=== PATIENT | male | born 1950 | race Caucasian/White ===

== ENCOUNTER 2020-05-02 13:53 | Inpatient (IN) ==
[2020-05-02] MEDS ORDERED: *HR* Heparin 5,000 UNIT/ML VIAL IVP PRN ×2 (14:22)
[2020-05-02] MEDS ORDERED: *HR* Heparin 5,000 UNIT/ML VIAL IVP ONE (14:22)
[2020-05-02] MEDS: Heparin 25,000 UNIT/250 ML D5W 25,000 UNIT/250 ML IV.SOLN IVC SCH (14:40)
[2020-05-02] MEDS ORDERED: Naloxone 0.4 MG/ML INJ IVP PRN (15:08)
[2020-05-02 15:10] LABS: Heparin anti-factor XA UFH < 0.04 IU/mL (0.30-0.70); INR 1.1; Prothrombin Time 12.6 Seconds (9.4-12.1)
[2020-05-02 15:47] LABS: Troponin I 9.36 ng/mL (< 0.04)
[2020-05-02 15:48] LABS: Hematocrit 44.1 % (37.5-50.1); Hemoglobin 14.5 g/dL (12.9-16.9); Mean Corpuscular HGB Conc 32.9 g/dL (31.6-35.5); Mean Corpuscular Hemoglobin 30.1 pg (28.0-33.3); Mean Corpuscular Volume 91.5 fL (83.0-100.0); Mean Platelet Volume 12.4 fL (9.4-12.4); Platelet Count 148 K/mcL (140-400); Red Blood Count 4.82 M/mcL (4.19-5.50); Red Cell Distribution Width 12.7 % (11.5-14.5); White Blood Count 8.7 K/mcL (4.3-11.1)
[2020-05-02 16:04] LABS: BUN/Creatinine Ratio 16 (6-26); Blood Urea Nitrogen 17 mg/dL (8-23); Calcium 9.6 mg/dL (8.6-10.3); Carbon Dioxide 28 mEq/L (23-29); Chloride 104 mEq/L (98-107); Glucose 97 mg/dL (70-105); Osmolality,Calculated 289 (280-300); Potassium 3.9 mEq/L (3.5-5.1); Sodium 139 mEq/L (136-145); eGFR For African Americans > 60 (> 60); eGFR For Non-African Americans > 60 (> 60)
[2020-05-02] MEDS ORDERED: 0.9 % Sodium Chloride 1,000 ML IVC SCH (17:00)
[2020-05-02] MEDS ORDERED: Perflutren Lipid Microsphere 1.3 ML in 0.9 % Sodium Chloride 8.7 ML IVP ONE (17:23)
[2020-05-02] MEDS: Insulin LISPRO 300 UNITS/3 ML VIAL SQ SCH ×2 (17:42→21:23)
[2020-05-03 05:47] LABS: BUN/Creatinine Ratio 16 (6-26); Blood Urea Nitrogen 17 mg/dL (8-23); Calcium 9.3 mg/dL (8.6-10.3); Carbon Dioxide 28 mEq/L (23-29); Chloride 104 mEq/L (98-107); Chol/HDL Ratio 2.4 (0-4.9); Cholesterol 83 mg/dL (< 200); Glucose 116 mg/dL (70-105); HDL Cholesterol 35 mg/dL (40-59); LDL Cholesterol,Calculated 25 mg/dL (0-99); Osmolality,Calculated 289 (280-300); Sodium 138 mEq/L (136-145); Triglycerides 114 mg/dL (< 150); eGFR For African Americans > 60 (> 60); eGFR For Non-African Americans > 60 (> 60)
[2020-05-03] MEDS: Insulin LISPRO 300 UNITS/3 ML VIAL SQ SCH ×4 (07:32→21:00)
[2020-05-03] MEDS: Aspirin 81 MG TAB.CHEW PO SCH (07:56)
[2020-05-03] MEDS: Nitroglycerin 0.4 MG TAB.SUBL SL PRN ×2 (08:35→08:40)
[2020-05-03] MEDS ORDERED: 0.9 % Sodium Chloride 500 ML ONE (08:45)
[2020-05-03] MEDS ORDERED: 0.9 % Sodium Chloride 1,000 ML IVC SCH (09:45)
[2020-05-03 10:09] LABS: Estimated Average Glucose 148 mg/dl
[2020-05-03] MEDS ORDERED: ISOVUE-370 200 ML INFUS..BTL ONE (11:48)
[2020-05-03] MEDS ORDERED: Heparin 1,000 UNITS/500 mL 500 ML ONE (11:48)
[2020-05-03] MEDS ORDERED: *HR* Heparin 10,000 UNIT/10 ML VIAL ONE (11:48)
[2020-05-03] MEDS ORDERED: 0.9 % Sodium Chloride 1,000 ML ONE ×2 (11:49→11:58)
[2020-05-03] MEDS ORDERED: Nitroglycerin 1,000 MCG/10 ML VIAL IV ONE (11:49)
[2020-05-03] MEDS ORDERED: *HR* Midazolam HCl 2 MG/2 ML VIAL ONE (13:07)
[2020-05-03] MEDS ORDERED: Acetaminophen 325 MG TABLET PO PRN (14:04)
[2020-05-03] MEDS: Heparin 25,000 UNIT/250 ML D5W 25,000 UNIT/250 ML IV.SOLN IVC SCH (15:52)
[2020-05-03] MEDS: Chlorhexidine Rinse 15 ML MOUTHWASH MM SCH (18:05)
[2020-05-03] MEDS ORDERED: *HR* Heparin 5,000 UNIT/ML VIAL IVP PRN (21:49)
[2020-05-04] MEDS ORDERED: Insulin Human Regular 100 UNIT in 0.9 % Sodium Chloride 100 ML IV PRN (02:00)
[2020-05-04] MEDS ORDERED: Heparin 15,000 UNIT in 0.9 % Sodium Chloride 500 ML IV ONE (02:00)
[2020-05-04] MEDS ORDERED: Dextrose 50 % in Water (Vial) 30 ML, Sodium Bicarbonate 20 MEQ, Lidocaine 1% 5 ML, Insu... TH ONE ×3 (02:00)
[2020-05-04] MEDS ORDERED: Norepinephrine 4 MG in 0.9 % Sodium Chloride 250 ML IVC PRN (02:00)
[2020-05-04] MEDS ORDERED: Dextrose 50 % in Water (Vial) 30 ML, Sodium Bicarbonate 20 MEQ, Potassium Chloride 15 M... TH ONE (02:00)
[2020-05-04 04:08] LABS: Basophils % 0.6 %; Eosinophils # 0.4 K/mcL (0.0-0.6); Eosinophils % 5.3 %; Hematocrit 39.8 % (37.5-50.1); Hemoglobin 13.9 g/dL (12.9-16.9); Immature Granulocytes % 0.2 % (0-4); Immature Platelets 7.3 % (1.1-6.1); Lymphocytes # 1.3 K/mcL (0.6-4.6); Lymphocytes % 19.5 %; Mean Corpuscular HGB Conc 34.9 g/dL (31.6-35.5); Mean Corpuscular Hemoglobin 31.5 pg (28.0-33.3); Mean Corpuscular Volume 90.2 fL (83.0-100.0); Mean Platelet Volume 11.6 fL (9.4-12.4); Monocytes # 0.8 K/mcL (0.0-1.3); Monocytes % 12.7 %; Neutrophils # 4.1 K/mcL (1.6-8.9); Platelet Count 111 K/mcL (140-400); Red Blood Count 4.41 M/mcL (4.19-5.50); Red Cell Distribution Width 12.8 % (11.5-14.5); Segmented Neutrophils % 61.7 %; White Blood Count 6.6 K/mcL (4.3-11.1)
[2020-05-04 04:18] LABS: BUN/Creatinine Ratio 20 (6-26); Blood Urea Nitrogen 15 mg/dL (8-23); Calcium 8.9 mg/dL (8.6-10.3); Carbon Dioxide 24 mEq/L (23-29); Chloride 105 mEq/L (98-107); Glucose 108 mg/dL (70-105); Osmolality,Calculated 283 (280-300); Potassium 3.8 mEq/L (3.5-5.1); Sodium 136 mEq/L (136-145); eGFR For African Americans > 60 (> 60); eGFR For Non-African Americans > 60 (> 60)
[2020-05-04] MEDS: Chlorhexidine Rinse 15 ML MOUTHWASH MM SCH ×2 (05:30→20:02)
[2020-05-04] MEDS: Aspirin 81 MG TAB.CHEW PO SCH (06:22)
[2020-05-04] MEDS ORDERED: *HR* FentaNYL (PF) 1,000 MCG/20 ML VIAL ONE (06:50)
[2020-05-04] MEDS ORDERED: *HR* Propofol 200 MG/20 ML VIAL IVP ONE (06:50)
[2020-05-04] MEDS ORDERED: *HR* Midazolam HCl 5 MG/5 ML VIAL IVP ONE (06:50)
[2020-05-04] MEDS ORDERED: *HR* Rocuronium Bromide 50 MG/5 ML VIAL ONE ×3 (06:55→11:13)
[2020-05-04] MEDS ORDERED: *HR* PHENYLEPHRINE 1,000 MCG/10 ML SYRINGE IVP ONE (06:55)
[2020-05-04] MEDS ORDERED: Dexamethasone 4 MG/ML VIAL ONE (06:55)
[2020-05-04] MEDS ORDERED: Lidocaine 2% Syringe 100 MG/5 ML ONE (06:56)
[2020-05-04] MEDS ORDERED: *HR* Magnesium Sulfate 1 GM/2 ML VIAL ONE (06:56)
[2020-05-04] MEDS ORDERED: Tranexamic Acid 1,000 MG/10 ML VIAL ONE (06:56)
[2020-05-04] MEDS ORDERED: Famotidine 20 MG/2 ML VIAL ONE (06:56)
[2020-05-04] MEDS ORDERED: CeFAZolin 2 GM/120 ML BAG IVPB ONE (07:00)
[2020-05-04 08:08] LABS: ABG Base Excess -1 mEq/L (-2 to 3); ABG Chloride 107 mEq/L (98-107); ABG Glucose 102 mg/dL (60-95); ABG HCO3 26 mEq/L (21-27); ABG Ionized Calcium 1.03 mmol/L (1.15-1.35); ABG Oxygen Saturation 100 % (95-98); ABG PCO2 48 mmHg (35-45); ABG PH 7.34 pH Units (7.32-7.45); ABG PO2 363 mmHg (85-104); ABG TCO2 27 mEq/L (20-26)
[2020-05-04] MEDS ORDERED: Albumin Human 5% 50.0 GM/1,000 ML IV.SOLN ONE (08:48)
[2020-05-04 09:46] LABS: ABG Base Excess -1 mEq/L (-2 to 3); ABG Chloride 105 mEq/L (98-107); ABG Glucose 103 mg/dL (60-95); ABG HCO3 25 mEq/L (21-27); ABG Ionized Calcium 1.19 mmol/L (1.15-1.35); ABG Oxygen Saturation 100 % (95-98); ABG PCO2 51 mmHg (35-45); ABG PH 7.31 pH Units (7.32-7.45); ABG PO2 322 mmHg (85-104); ABG TCO2 27 mEq/L (20-26)
[2020-05-04] MEDS ORDERED: Calcium Gluconate 1,000 MG/10 ML VIAL ONE (09:56)
[2020-05-04] MEDS ORDERED: Protamine Sulfate 250 MG/25 ML VIAL IVP ONE (09:56)
[2020-05-04 10:22] LABS: ABG Base Excess -1 mEq/L (-2 to 3); ABG Chloride 100 mEq/L (98-107); ABG Glucose 157 mg/dL (60-95); ABG HCO3 24 mEq/L (21-27); ABG Ionized Calcium 1.08 mmol/L (1.15-1.35); ABG Oxygen Saturation 100 % (95-98); ABG PCO2 37 mmHg (35-45); ABG PH 7.42 pH Units (7.32-7.45); ABG PO2 472 mmHg (85-104); ABG TCO2 25 mEq/L (20-26)
[2020-05-04] MEDS ORDERED: Albumin Human 5% 12.5 GM/250 ML IV.SOLN ONE (10:41)
[2020-05-04 10:53] LABS: ABG Base Excess 0 mEq/L (-2 to 3); ABG Chloride 100 mEq/L (98-107); ABG Glucose 143 mg/dL (60-95); ABG HCO3 25 mEq/L (21-27); ABG Oxygen Saturation 100 % (95-98); ABG PCO2 39 mmHg (35-45); ABG PH 7.41 pH Units (7.32-7.45); ABG PO2 342 mmHg (85-104); ABG TCO2 26 mEq/L (20-26)
[2020-05-04 11:15] LABS: ABG Base Excess -1 mEq/L (-2 to 3); ABG Chloride 105 mEq/L (98-107); ABG Glucose 124 mg/dL (60-95); ABG HCO3 24 mEq/L (21-27); ABG Ionized Calcium > 4.00 mmol/L (1.15-1.35); ABG Oxygen Saturation 100 % (95-98); ABG PCO2 43 mmHg (35-45); ABG PH 7.37 pH Units (7.32-7.45); ABG PO2 271 mmHg (85-104); ABG TCO2 26 mEq/L (20-26)
[2020-05-04] MEDS ORDERED: Ondansetron 4 MG/2 ML VIAL ONE (11:26)
[2020-05-04 11:33] LABS: ABG Base Excess -1 mEq/L (-2 to 3); ABG Chloride 106 mEq/L (98-107); ABG Glucose 113 mg/dL (60-95); ABG HCO3 25 mEq/L (21-27); ABG Ionized Calcium 1.32 mmol/L (1.15-1.35); ABG Oxygen Saturation 100 % (95-98); ABG PCO2 43 mmHg (35-45); ABG PH 7.36 pH Units (7.32-7.45); ABG PO2 330 mmHg (85-104); ABG TCO2 26 mEq/L (20-26)
[2020-05-04] MEDS ORDERED: Potassium Chloride 40 MEQ/200 ML BAG IVPB PRN (11:40)
[2020-05-04] MEDS ORDERED: *HR* Dextrose 50 % in Water (Syg) 50 ML SYRINGE IVP PRN (11:40)
[2020-05-04] MEDS ORDERED: Insulin Regular, Human 100 UNIT/ML IV PRN (11:40)
[2020-05-04] MEDS ORDERED: Acetaminophen 650 MG RECTAL SUPP RC PRN (11:42)
[2020-05-04] MEDS ORDERED: Calcium Gluconate 1gm/50mL 1 GM/50 ML BAG IVPB PRN (11:42)
[2020-05-04] MEDS ORDERED: Ondansetron 4 MG/2 ML VIAL IVP PRN (11:42)
[2020-05-04] MEDS ORDERED: 0.9 % Sodium Chloride w KCl 20 MEQ/1,000 ML MLS IVC SCH (11:45)
[2020-05-04 12:32] LABS: ABG Base Excess -2 mEq/L (-2 to 3); ABG HCO3 25 mEq/L (21-27); ABG Oxygen Saturation 99 % (95-98); ABG PCO2 54 mmHg (35-45); ABG PH 7.27 pH Units (7.32-7.45); ABG PO2 183 mmHg (85-104); ABG TCO2 27 mEq/L (20-26); Blood Gas Modality ASSIST CONTROL; Blood Gas VT 500 cc
[2020-05-04 12:36] LABS: Basophils % 0.3 %; Red Blood Count 3.85 M/mcL (4.19-5.50)
[2020-05-04 12:38] LABS: Basophils # 0.1 K/mcL (0.0-0.2); Eosinophils # 0.1 K/mcL (0.0-0.6); Eosinophils % 0.7 %; Hematocrit 34.7 % (37.5-50.1); Hemoglobin 11.9 g/dL (12.9-16.9); Immature Granulocytes % 0.7 % (0-4); Immature Platelets 11.8 % (1.1-6.1); Lymphocytes # 0.9 K/mcL (0.6-4.6); Mean Corpuscular HGB Conc 34.3 g/dL (31.6-35.5); Mean Corpuscular Hemoglobin 30.9 pg (28.0-33.3); Mean Corpuscular Volume 90.1 fL (83.0-100.0); Mean Platelet Volume 11.8 fL (9.4-12.4); Monocytes # 1.4 K/mcL (0.0-1.3); Monocytes % 8.9 %; Red Cell Distribution Width 12.9 % (11.5-14.5); Segmented Neutrophils % 83.4 %
[2020-05-04 12:39] LABS: Neutrophils # 12.8 K/mcL (1.6-8.9); Platelet Count 83 K/mcL (140-400)
[2020-05-04 12:42] LABS: White Blood Count 15.3 K/mcL (4.3-11.1)
[2020-05-04 12:46] LABS: Activated Partial Thrombo Time 31.4 Seconds (26.0-36.0)
[2020-05-04 12:51] LABS: INR 1.7
[2020-05-04 12:53] LABS: BUN/Creatinine Ratio 18 (6-26); Blood Urea Nitrogen 14 mg/dL (8-23); Calcium 7.7 mg/dL (8.6-10.3); Carbon Dioxide 24 mEq/L (23-29); Chloride 105 mEq/L (98-107); Glucose 124 mg/dL (70-105); Magnesium 2.7 mg/dL (1.6-2.6); Osmolality,Calculated 286 (280-300); Potassium 3.6 mEq/L (3.5-5.1); Prothrombin Time 19.5 Seconds (9.4-12.1); Sodium 137 mEq/L (136-145); eGFR For African Americans > 60 (> 60); eGFR For Non-African Americans > 60 (> 60)
[2020-05-04] MEDS: *HR* OxyCODONE/APAP 5/325 TABLET PO PRN ×2 (13:10→20:02)
[2020-05-04] MEDS: *HR* FentaNYL (PF) 100 MCG/2 ML VIAL IVP PRN ×5 (13:10→23:40)
[2020-05-04] MEDS: Insulin Human Regular 100 UNIT in 0.9 % Sodium Chloride 100 ML IVC SCH ×2 (13:11→14:00)
[2020-05-04] MEDS: niCARdipine 20 MG/200 ML MLS IVC SCH ×4 (13:11→23:12)
[2020-05-04] MEDS: Norepinephrine 4 MG/254 ML IV.SOLN IVC SCH ×2 (13:12→13:15)
[2020-05-04] MEDS: Metoclopramide 10 MG/2 ML VIAL IVP SCH ×3 (13:13→23:40)
[2020-05-04] MEDS ORDERED: Amiodarone Premix 150 MG/100 ML BAG IVPB ONE (13:34)
[2020-05-04] MEDS ORDERED: Amiodarone Premix 360 MG/200 ML BAG IVC ONE (13:34)
[2020-05-04] MEDS: Pantoprazole 40 MG VIAL IVP SCH (13:52)
[2020-05-04] MEDS: Amiodarone Premix 360 MG/200 ML BAG IVC SCH ×2 (14:20→20:54)
[2020-05-04] MEDS: Albumin Human 5% 12.5 GM/250 ML IV.SOLN IVPB PRN ×2 (14:22→16:47)
[2020-05-04] MEDS: CeFAZolin 2 GM/120 ML BAG IVPB SCH ×2 (15:15→23:47)
[2020-05-04 15:39] LABS: ABG Base Excess -6 mEq/L (-2 to 3); ABG HCO3 23 mEq/L (21-27); ABG Oxygen Saturation 91 % (95-98); ABG PCO2 59 mmHg (35-45); ABG PH 7.19 pH Units (7.32-7.45); ABG PO2 75 mmHg (85-104); ABG TCO2 24 mEq/L (20-26); Blood Gas Modality CPAP/PS; Blood Gas Pressure Support 5 cm H2O
[2020-05-04] MEDS: MethylPREDNISolone 40 MG/ML VIAL IVP SCH (17:24)
[2020-05-04] MEDS: Ipratropium/Albuterol Neb 3 ML IH SCH ×5 (18:16→22:13)
[2020-05-04] MEDS ORDERED: Budesonide/Formoterol 160/4.5 1 PUFF INH IH ONE (19:43)
[2020-05-04] MEDS: Furosemide 20 MG/2 ML VIAL IVP SCH (20:02)
[2020-05-04 20:20] LABS: ABG Base Excess -2 mEq/L (-2 to 3); ABG HCO3 24 mEq/L (21-27); ABG Oxygen Saturation 96 % (95-98); ABG PCO2 46 mmHg (35-45); ABG PH 7.33 pH Units (7.32-7.45); ABG PO2 89 mmHg (85-104); ABG TCO2 26 mEq/L (20-26); Blood Gas VT 500 cc
[2020-05-04] MEDS: Budesonide/Formoterol 160/4.5 1 PUFF INH IH SCH (20:22)
[2020-05-05] LABS: ABG Base Excess -3 mEq/L (-2 to 3); ABG HCO3 23 mEq/L (21-27); ABG Oxygen Saturation 96 % (95-98); ABG PCO2 44 mmHg (35-45); ABG PH 7.32 pH Units (7.32-7.45); ABG PO2 90 mmHg (85-104); ABG TCO2 24 mEq/L (20-26); Blood Gas VT 500 cc
[2020-05-05 03:42] LABS: Basophils % 0.1 %; Immature Granulocytes % 0.4 % (0-4)
[2020-05-05 03:44] LABS: Hematocrit 35.2 % (37.5-50.1); Lymphocytes # 0.5 K/mcL (0.6-4.6); Lymphocytes % 4.7 %; Mean Corpuscular HGB Conc 34.1 g/dL (31.6-35.5); Mean Corpuscular Hemoglobin 30.9 pg (28.0-33.3); Mean Corpuscular Volume 90.7 fL (83.0-100.0); Mean Platelet Volume 12.6 fL (9.4-12.4); Monocytes # 1.1 K/mcL (0.0-1.3); Monocytes % 10.3 %; Red Blood Count 3.88 M/mcL (4.19-5.50); Red Cell Distribution Width 13.1 % (11.5-14.5); Segmented Neutrophils % 84.5 %; White Blood Count 10.7 K/mcL (4.3-11.1)
[2020-05-05 03:46] LABS: INR 1.4; Platelet Count 80 K/mcL (140-400)
[2020-05-05 03:48] LABS: Activated Partial Thrombo Time 30.7 Seconds (26.0-36.0)
[2020-05-05 04:02] LABS: BUN/Creatinine Ratio 15 (6-26); Blood Urea Nitrogen 16 mg/dL (8-23); Calcium 8.4 mg/dL (8.6-10.3); Carbon Dioxide 24 mEq/L (23-29); Chloride 107 mEq/L (98-107); Glucose 138 mg/dL (70-105); Magnesium 2.1 mg/dL (1.6-2.6); Osmolality,Calculated 291 (280-300); Potassium 3.8 mEq/L (3.5-5.1); Sodium 139 mEq/L (136-145); eGFR For African Americans > 60 (> 60); eGFR For Non-African Americans > 60 (> 60)
[2020-05-05] MEDS: niCARdipine 20 MG/200 ML MLS IVC SCH ×2 (04:22→05:55)
[2020-05-05] MEDS: *HR* OxyCODONE/APAP 5/325 TABLET PO PRN ×4 (04:23→21:23)
[2020-05-05 04:40] LABS: ABG Base Excess 0 mEq/L (-2 to 3); ABG HCO3 26 mEq/L (21-27); ABG Oxygen Saturation 98 % (95-98); ABG PCO2 45 mmHg (35-45); ABG PH 7.37 pH Units (7.32-7.45); ABG PO2 112 mmHg (85-104); ABG TCO2 27 mEq/L (20-26); Blood Gas Modality ASSIST CONTROL; Blood Gas VT 500 cc
[2020-05-05] MEDS: Metoclopramide 10 MG/2 ML VIAL IVP SCH ×3 (05:55→17:56)
[2020-05-05] MEDS: MethylPREDNISolone 40 MG/ML VIAL IVP SCH ×2 (05:55→17:56)
[2020-05-05 06:36] LABS: ABG Base Excess 0 mEq/L (-2 to 3); ABG HCO3 26 mEq/L (21-27); ABG Oxygen Saturation 98 % (95-98); ABG PCO2 45 mmHg (35-45); ABG PH 7.36 pH Units (7.32-7.45); ABG PO2 102 mmHg (85-104); ABG TCO2 27 mEq/L (20-26); Blood Gas Pressure Support 5 cm H2O
[2020-05-05] MEDS: *HR* FentaNYL (PF) 100 MCG/2 ML VIAL IVP PRN (06:50)
[2020-05-05] MEDS: Chlorhexidine Rinse 15 ML MOUTHWASH MM SCH ×2 (07:36→21:23)
[2020-05-05] MEDS: Pantoprazole 40 MG VIAL IVP SCH (07:36)
[2020-05-05] MEDS: Furosemide 20 MG/2 ML VIAL IVP SCH ×2 (07:36→21:23)
[2020-05-05] MEDS: Aspirin Enteric Coated 81 MG Tablet PO SCH (07:37)
[2020-05-05] MEDS: Budesonide/Formoterol 160/4.5 1 PUFF INH IH SCH ×2 (07:46→20:01)
[2020-05-05 07:54] LABS: ABG Base Excess 1 mEq/L (-2 to 3); ABG HCO3 25 mEq/L (21-27); ABG Oxygen Saturation 98 % (95-98); ABG PCO2 41 mmHg (35-45); ABG PO2 105 mmHg (85-104); ABG TCO2 27 mEq/L (20-26)
[2020-05-05] MEDS ORDERED: D5% in Water 1,000 ML IVC PRN ×2 (08:17→17:48)
[2020-05-05] MEDS ORDERED: Dextrose Gel 15 GM/37.5 ML TUBE PO PRN ×4 (08:17→17:48)
[2020-05-05] MEDS ORDERED: *HR* Dextrose 50 % in Water (Syg) 50 ML SYRINGE IVP PRN ×2 (08:17→17:48)
[2020-05-05] MEDS: Amiodarone Premix 360 MG/200 ML BAG IVC SCH ×2 (08:53→21:26)
[2020-05-05] MEDS: *HR* Heparin 5,000 UNIT/ML VIAL SQ SCH ×2 (11:33→17:56)
[2020-05-05] MEDS ORDERED: *HR* FentaNYL (PF) 100 MCG/2 ML VIAL IVP PRN (11:42)
[2020-05-05] MEDS: Insulin LISPRO 300 UNITS/3 ML VIAL SQ SCH ×2 (18:13→21:25)
[2020-05-06] MEDS: Metoclopramide 10 MG/2 ML VIAL IVP SCH ×5 (01:07→23:25)
[2020-05-06 03:25] LABS: Basophils % 0.1 %; Hemoglobin 11.4 g/dL (12.9-16.9); Immature Granulocytes % 0.5 % (0-4); Mean Corpuscular HGB Conc 32.9 g/dL (31.6-35.5); Mean Corpuscular Hemoglobin 30.6 pg (28.0-33.3); Red Blood Count 3.73 M/mcL (4.19-5.50); Red Cell Distribution Width 13.2 % (11.5-14.5); Segmented Neutrophils % 85.1 %
[2020-05-06 03:26] LABS: Hematocrit 34.7 % (37.5-50.1); Immature Platelets 13.6 % (1.1-6.1); Lymphocytes # 0.5 K/mcL (0.6-4.6); Lymphocytes % 5.3 %; Mean Platelet Volume 12.8 fL (9.4-12.4); Monocytes # 0.9 K/mcL (0.0-1.3); White Blood Count 9.9 K/mcL (4.3-11.1)
[2020-05-06 03:27] LABS: Neutrophils # 8.4 K/mcL (1.6-8.9); Platelet Count 80 K/mcL (140-400)
[2020-05-06 03:43] LABS: BUN/Creatinine Ratio 23 (6-26); Blood Urea Nitrogen 23 mg/dL (8-23); Calcium 8.9 mg/dL (8.6-10.3); Carbon Dioxide 29 mEq/L (23-29); Chloride 105 mEq/L (98-107); Glucose 158 mg/dL (70-105); Osmolality,Calculated 295 (280-300); Potassium 4.1 mEq/L (3.5-5.1); Sodium 139 mEq/L (136-145); eGFR For African Americans > 60 (> 60); eGFR For Non-African Americans > 60 (> 60)
[2020-05-06 03:44] LABS: Albumin 3.9 g/dL (3.5-5.7); Albumin/Globulin Ratio 2.4 (1.1-2.2); Bilirubin,Direct 0.2 mg/dL (0.0-0.2); Bilirubin,Indirect 0.3 mg/dL (0.0-1.0); Bilirubin,Total 0.5 mg/dL (0.3-1.0); Globulin 1.6 g/dL (2.4-3.5); Magnesium 2.1 mg/dL (1.6-2.6); Phosphorous 2.2 mg/dL (2.7-4.5); Total Protein 5.5 g/dL (6.4-8.9)
[2020-05-06] MEDS: MethylPREDNISolone 40 MG/ML VIAL IVP SCH (06:21)
[2020-05-06] MEDS: *HR* Heparin 5,000 UNIT/ML VIAL SQ SCH ×2 (06:21→17:18)
[2020-05-06] MEDS: Budesonide/Formoterol 160/4.5 1 PUFF INH IH SCH ×2 (07:57→19:37)
[2020-05-06] MEDS ORDERED: *HR* Amiodarone 200 MG TABLET PO SCH (09:00)
[2020-05-06] MEDS: Chlorhexidine Rinse 15 ML MOUTHWASH MM SCH ×2 (09:24→20:20)
[2020-05-06] MEDS: Furosemide 20 MG/2 ML VIAL IVP SCH ×2 (09:24→20:20)
[2020-05-06] MEDS: Pantoprazole 40 MG VIAL IVP SCH (09:24)
[2020-05-06] MEDS: *HR* OxyCODONE/APAP 5/325 TABLET PO PRN (09:25)
[2020-05-06] MEDS: Aspirin Enteric Coated 81 MG Tablet PO SCH (09:25)
[2020-05-06] MEDS: Insulin LISPRO 300 UNITS/3 ML VIAL SQ SCH ×4 (09:26→20:20)
[2020-05-07 03:55] LABS: Monocytes % 9.3 %; Red Cell Distribution Width 13.3 % (11.5-14.5)
[2020-05-07 03:57] LABS: Basophils % 0.1 %; Eosinophils % 0.2 %; Hemoglobin 11.1 g/dL (12.9-16.9); Immature Granulocytes % 0.7 % (0-4); Immature Platelets 12.3 % (1.1-6.1); Lymphocytes # 1.2 K/mcL (0.6-4.6); Lymphocytes % 13.9 %; Mean Corpuscular HGB Conc 32.6 g/dL (31.6-35.5); Mean Corpuscular Hemoglobin 30.2 pg (28.0-33.3); Mean Corpuscular Volume 92.4 fL (83.0-100.0); Mean Platelet Volume 12.6 fL (9.4-12.4); Monocytes # 0.8 K/mcL (0.0-1.3); Neutrophils # 6.7 K/mcL (1.6-8.9); Red Blood Count 3.68 M/mcL (4.19-5.50); Segmented Neutrophils % 75.8 %; White Blood Count 8.8 K/mcL (4.3-11.1)
[2020-05-07 04:00] LABS: Platelet Count 94 K/mcL (140-400)
[2020-05-07 04:13] LABS: BUN/Creatinine Ratio 34 (6-26); Blood Urea Nitrogen 41 mg/dL (8-23); Calcium 8.6 mg/dL (8.6-10.3); Carbon Dioxide 30 mEq/L (23-29); Chloride 105 mEq/L (98-107); Glucose 139 mg/dL (70-105); Osmolality,Calculated 302 (280-300); Potassium 4.1 mEq/L (3.5-5.1); Sodium 140 mEq/L (136-145); eGFR For African Americans > 60 (> 60); eGFR For Non-African Americans 60 (> 60)
[2020-05-07] MEDS: *HR* Heparin 5,000 UNIT/ML VIAL SQ SCH ×2 (04:26→16:42)
[2020-05-07] MEDS: *HR* OxyCODONE/APAP 5/325 TABLET PO PRN ×2 (04:30→23:09)
[2020-05-07] MEDS: Metoclopramide 10 MG/2 ML VIAL IVP SCH ×2 (05:16→12:10)
[2020-05-07] MEDS: Budesonide/Formoterol 160/4.5 1 PUFF INH IH SCH ×2 (07:37→19:42)
[2020-05-07] MEDS: predniSONE 20 MG TABLET PO SCH (07:49)
[2020-05-07] MEDS: Pantoprazole 40 MG VIAL IVP SCH (07:49)
[2020-05-07] MEDS: Furosemide 20 MG/2 ML VIAL IVP SCH (07:49)
[2020-05-07] MEDS: Aspirin Enteric Coated 81 MG Tablet PO SCH (07:49)
[2020-05-07] MEDS: Insulin LISPRO 300 UNITS/3 ML VIAL SQ SCH ×4 (07:50→20:54)
[2020-05-07] MEDS: Chlorhexidine Rinse 15 ML MOUTHWASH MM SCH ×2 (07:50→20:53)
[2020-05-07] MEDS ORDERED: CeFAZolin Syr 2,000MG/20 ML 2,000 MG/20 ML SYRINGE IVPB ONE (10:36)
[2020-05-07] MEDS ORDERED: 0.9 % Sodium Chloride 1,000 ML ONE (14:19)
[2020-05-07] MEDS ORDERED: *HR* FentaNYL (PF) 100 MCG/2 ML VIAL ONE (14:26)
[2020-05-07] MEDS ORDERED: *HR* Midazolam HCl 2 MG/2 ML VIAL ONE (14:26)
[2020-05-07] MEDS ORDERED: Heparin 1,000 UNITS/500 mL 500 ML ONE (14:26)
[2020-05-07] MEDS: CeFAZolin 2 GM/120 ML BAG IVPB SCH (20:54)
[2020-05-08 05:45] LABS: Hematocrit 34.2 % (37.5-50.1); Mean Corpuscular Volume 92.7 fL (83.0-100.0); Monocytes % 9.2 %; Red Blood Count 3.69 M/mcL (4.19-5.50); Red Cell Distribution Width 13.2 % (11.5-14.5)
[2020-05-08 05:47] LABS: Basophils % 0.3 %; Eosinophils # 0.1 K/mcL (0.0-0.6); Eosinophils % 1.3 %; Hemoglobin 11.2 g/dL (12.9-16.9); Immature Granulocytes % 0.5 % (0-4); Immature Platelets 11.7 % (1.1-6.1); Lymphocytes % 15.8 %; Mean Corpuscular HGB Conc 32.7 g/dL (31.6-35.5); Mean Corpuscular Hemoglobin 30.4 pg (28.0-33.3); Mean Platelet Volume 12.4 fL (9.4-12.4); Monocytes # 0.6 K/mcL (0.0-1.3); Neutrophils # 4.7 K/mcL (1.6-8.9); Segmented Neutrophils % 72.9 %; White Blood Count 6.4 K/mcL (4.3-11.1)
[2020-05-08 05:48] LABS: Platelet Count 94 K/mcL (140-400)
[2020-05-08] MEDS: CeFAZolin 2 GM/120 ML BAG IVPB SCH (06:00)
[2020-05-08] MEDS: *HR* Heparin 5,000 UNIT/ML VIAL SQ SCH ×2 (06:00→17:12)
[2020-05-08 06:08] LABS: BUN/Creatinine Ratio 40 (6-26); Blood Urea Nitrogen 34 mg/dL (8-23); Calcium 8.6 mg/dL (8.6-10.3); Carbon Dioxide 26 mEq/L (23-29); Chloride 106 mEq/L (98-107); Glucose 131 mg/dL (70-105); Osmolality,Calculated 297 (280-300); Sodium 139 mEq/L (136-145); eGFR For African Americans > 60 (> 60); eGFR For Non-African Americans > 60 (> 60)
[2020-05-08] MEDS: Aspirin Enteric Coated 81 MG Tablet PO SCH (07:24)
[2020-05-08] MEDS: predniSONE 20 MG TABLET PO SCH (07:24)
[2020-05-08] MEDS: Chlorhexidine Rinse 15 ML MOUTHWASH MM SCH ×2 (07:25→19:49)
[2020-05-08] MEDS: Insulin LISPRO 300 UNITS/3 ML VIAL SQ SCH ×4 (07:25→20:14)
[2020-05-08] MEDS: Budesonide/Formoterol 160/4.5 1 PUFF INH IH SCH ×3 (07:44→20:29)
[2020-05-08] MEDS ORDERED: MOM Conc 10 ML UD.LIQ PO PRN ×2 (08:59→09:35)
[2020-05-08] MEDS ORDERED: *HR* Amiodarone 200 MG TABLET PO SCH (09:00)
[2020-05-08] MEDS ORDERED: *HR* Dextrose 50 % in Water (Syg) 50 ML SYRINGE IVP PRN (09:35)
[2020-05-08] MEDS ORDERED: Naloxone 0.4 MG/ML INJ IVP PRN (09:35)
[2020-05-08] MEDS ORDERED: Nitroglycerin 0.4 MG TAB.SUBL SL PRN (09:35)
[2020-05-08] MEDS ORDERED: Acetaminophen 325 MG TABLET PO PRN (09:35)
[2020-05-08] MEDS ORDERED: D5% in Water 1,000 ML IVC PRN (09:35)
[2020-05-08] MEDS ORDERED: Dextrose Gel 15 GM/37.5 ML TUBE PO PRN ×2 (09:35)
[2020-05-08] MEDS ORDERED: Ondansetron 4 MG/2 ML VIAL IVP PRN (09:35)
[2020-05-08] MEDS: *HR* OxyCODONE/APAP 5/325 TABLET PO PRN ×2 (11:16→20:14)
[2020-05-09 05:18] LABS: Basophils % 0.5 %; Eosinophils # 0.2 K/mcL (0.0-0.6); Eosinophils % 2.9 %; Hematocrit 36.1 % (37.5-50.1); Hemoglobin 11.7 g/dL (12.9-16.9); Lymphocytes # 1.3 K/mcL (0.6-4.6); Lymphocytes % 20.6 %; Mean Corpuscular HGB Conc 32.4 g/dL (31.6-35.5); Mean Corpuscular Hemoglobin 30.2 pg (28.0-33.3); Mean Platelet Volume 12.3 fL (9.4-12.4); Monocytes # 0.6 K/mcL (0.0-1.3); Monocytes % 9.2 %; Platelet Count 106 K/mcL (140-400); Red Blood Count 3.88 M/mcL (4.19-5.50); Red Cell Distribution Width 13.2 % (11.5-14.5); Segmented Neutrophils % 65.8 %; White Blood Count 6.1 K/mcL (4.3-11.1)
[2020-05-09 05:38] LABS: BUN/Creatinine Ratio 37 (6-26); Blood Urea Nitrogen 31 mg/dL (8-23); Calcium 8.6 mg/dL (8.6-10.3); Carbon Dioxide 25 mEq/L (23-29); Chloride 106 mEq/L (98-107); Glucose 208 mg/dL (70-105); Osmolality,Calculated 299 (280-300); Sodium 138 mEq/L (136-145); eGFR For African Americans > 60 (> 60); eGFR For Non-African Americans > 60 (> 60)
[2020-05-09] MEDS: *HR* Heparin 5,000 UNIT/ML VIAL SQ SCH ×2 (05:49→17:04)
[2020-05-09] MEDS: Budesonide/Formoterol 160/4.5 1 PUFF INH IH SCH ×2 (08:04→20:21)
[2020-05-09] MEDS: Chlorhexidine Rinse 15 ML MOUTHWASH MM SCH ×2 (08:24→21:08)
[2020-05-09] MEDS: Aspirin Enteric Coated 81 MG Tablet PO SCH (08:24)
[2020-05-09] MEDS: *HR* Amiodarone 200 MG TABLET PO SCH (08:25)
[2020-05-09] MEDS: Insulin LISPRO 300 UNITS/3 ML VIAL SQ SCH ×4 (08:26→21:08)
[2020-05-09] MEDS: *HR* OxyCODONE/APAP 5/325 TABLET PO PRN (14:58)
[2020-05-10 05:47] LABS: Basophils # 0.1 K/mcL (0.0-0.2); Basophils % 1.3 %; Eosinophils # 0.6 K/mcL (0.0-0.6); Eosinophils % 6.3 %; Hematocrit 43.8 % (37.5-50.1); Immature Granulocytes % 2.1 % (0-4); Lymphocytes # 1.4 K/mcL (0.6-4.6); Mean Corpuscular HGB Conc 30.8 g/dL (31.6-35.5); Mean Corpuscular Hemoglobin 30.4 pg (28.0-33.3); Mean Corpuscular Volume 98.6 fL (83.0-100.0); Monocytes # 1.1 K/mcL (0.0-1.3); Monocytes % 12.1 %; Neutrophils # 5.5 K/mcL (1.6-8.9); Red Blood Count 4.44 M/mcL (4.19-5.50); Red Cell Distribution Width 13.3 % (11.5-14.5); Segmented Neutrophils % 62.2 %; White Blood Count 8.9 K/mcL (4.3-11.1)
[2020-05-10 05:48] LABS: Hemoglobin 13.5 g/dL (12.9-16.9); Platelet Count 90 K/mcL (140-400)
[2020-05-10] MEDS: *HR* Heparin 5,000 UNIT/ML VIAL SQ SCH (05:53)
[2020-05-10 06:08] LABS: BUN/Creatinine Ratio 33 (6-26); Blood Urea Nitrogen 29 mg/dL (8-23); Calcium 8.9 mg/dL (8.6-10.3); Carbon Dioxide 25 mEq/L (23-29); Chloride 105 mEq/L (98-107); Glucose 141 mg/dL (70-105); Osmolality,Calculated 292 (280-300); Potassium 4.8 mEq/L (3.5-5.1); Sodium 137 mEq/L (136-145); eGFR For African Americans > 60 (> 60); eGFR For Non-African Americans > 60 (> 60)
[2020-05-10] MEDS: Chlorhexidine Rinse 15 ML MOUTHWASH MM SCH (08:01)
[2020-05-10] MEDS: Aspirin Enteric Coated 81 MG Tablet PO SCH (08:01)
[2020-05-10] MEDS: *HR* Amiodarone 200 MG TABLET PO SCH (08:02)
[2020-05-10] MEDS: Insulin LISPRO 300 UNITS/3 ML VIAL SQ SCH ×2 (08:02→11:51)
[2020-05-10] MEDS: Budesonide/Formoterol 160/4.5 1 PUFF INH IH SCH (08:18)
[2020-05-10 13:08] VITALS: BP 115/65
== END 2020-05-10 15:10 | DRG 233 ==
LOC: 2ANU 13:53 → EMEROOARM 13:53 → SUATTDRO 15:42 → 2ANU 16:27 → ICNU 05-04 07:44
PROVIDERS: ADMIT Internal Medicine; ATTEND Internal Medicine